=== PATIENT | female | born 1945 | race Caucasian/White ===

== ENCOUNTER 2017-08-09 17:22 | Inpatient (IN) | payer MEDICARE ==
[~2017-08-09] VITALS: Ht 160 cm; Wt 108.0 kg
[2017-08-09 17:36] LABS: BASOPHILS % (AUTO) 0.9 % (0.0-5.0); EOSINOPHILS % (AUTO) 2.5 % (0.0-8.0); HEMATOCRIT 28.9 % (36-48); LYMPHOCYTES % (AUTO) 13.7 % (21.0-51.0); MEAN CORPUSCULAR HGB CONC 33.1 g/dL (32.0-36.0); MEAN CORPUSCULAR VOLUME 90.9 fL (79-99); MONOCYTES % (AUTO) 12.2 % (3.0-13.0); NEUTROPHILS % (AUTO) 70.7 % (40.0-77.0); NUCLEATED RED BLOOD CELLS 0.1 % (0.0-0.19); PLATELET COUNT (AUTO) 247 K/uL (130-400); RED BLOOD CELL COUNT(AUTO) 3.18 MIL/uL (4.00-5.50); RED CELL DISTRIBUTION WIDTH 16.5 % (11.0-15.5); WHITE BLOOD COUNT (AUTO) 7.8 K/uL (4.8-10.8)
[2017-08-09 17:49] LABS: POTASSIUM 3.8 mmol/L (3.5-5.1)
[2017-08-09 17:55] LABS: ALBUMIN 3.1 g/dL (3.5-5.0); BILIRUBIN,TOTAL 0.5 mg/dL (0.2-1.0); TOTAL PROTEIN, SERUM 6.6 g/dL (6.0-8.3)
[2017-08-09 18:27] LABS: CREATINE KINASE MB 1.7 ng/mL (0.5-3.6)
[2017-08-09] MEDS ORDERED: IOPAMIDOL-370 100 ML VIAL IV ONE (20:11)
[2017-08-09 23:03] VITALS: BP 128/65
[2017-08-09] MEDS ORDERED: POTASSIUM CHLORIDE 20 MEQ ERTAB PO PRN (23:30)
[2017-08-09] MEDS ORDERED: POTASSIUM CHLORIDE 20MEQ/100ML 100 ML IV PRN (23:30)
[2017-08-09] MEDS ORDERED: POTASSIUM CHLORIDE 10% ELIXIR 20 MEQ/15 ML UDCUP PO PRN (23:30)
[2017-08-09] MEDS ORDERED: IPRATROPIUM/ALBUTEROL SULFATE 3 ML SOLUTION IH PRN (23:30)
[2017-08-09] MEDS ORDERED: LIDOCAINE HCL-MPF 1% 2ML VIAL IJ PRN (23:30)
[2017-08-10 00:02] LABS: CREATINE KINASE MB 1.5 ng/mL (0.5-3.6); CREATINE KINASE, TOTAL 37 U/L (21-232); MYOGLOBIN 167 ng/mL (10-92); TROPONIN I < 0.04 ng/mL (0.00-0.06)
[2017-08-10] MEDS ORDERED: DEXTROSE 50%-WATER 50 ML DISP.SYRIN IV PRN (00:30)
[2017-08-10] MEDS ORDERED: GLUCAGON 1MG KIT 1 MG ML IM PRN (00:30)
[2017-08-10] MEDS ORDERED: UBIQ100C3 PO (01:27)
[2017-08-10] MEDS ORDERED: AMLO5TAB4 PO (01:27)
[2017-08-10] MEDS ORDERED: MELA10TA2 PO (01:27)
[2017-08-10] MEDS ORDERED: METO-409 PO (01:27)
[2017-08-10] MEDS ORDERED: ERGO80004 PO (01:27)
[2017-08-10] MEDS ORDERED: PENT400T12 PO (01:27)
[2017-08-10] MEDS ORDERED: APIX2.5T PO (01:27)
[2017-08-10] MEDS ORDERED: FURO40TA7 PO (01:32)
[2017-08-10] MEDS ORDERED: INSU100I3 SQ (01:32)
[2017-08-10 03:16] VITALS: BP 139/60
[2017-08-10 05:33] LABS: BASOPHILS % (AUTO) 0.7 % (0.0-5.0); EOSINOPHILS % (AUTO) 2.9 % (0.0-8.0); HEMATOCRIT 25.1 % (36-48); LYMPHOCYTES % (AUTO) 17.6 % (21.0-51.0); MEAN CORPUSCULAR HEMOGLOBIN 30.9 pg (27.0-33.0); MEAN CORPUSCULAR HGB CONC 34.3 g/dL (32.0-36.0); MONOCYTES % (AUTO) 14.2 % (3.0-13.0); NEUTROPHILS % (AUTO) 64.6 % (40.0-77.0); NUCLEATED RED BLOOD CELLS 0.1 % (0.0-0.19); PLATELET COUNT (AUTO) 221 K/uL (130-400); RED BLOOD CELL COUNT(AUTO) 2.78 MIL/uL (4.00-5.50); RED CELL DISTRIBUTION WIDTH 16.4 % (11.0-15.5); WHITE BLOOD COUNT (AUTO) 5.9 K/uL (4.8-10.8)
[2017-08-10 05:59] LABS: CARBON DIOXIDE 28 mmol/L (21-32); CHLORIDE 97 mmol/L (101-111); CREATINE KINASE MB 1.5 ng/mL (0.5-3.6); CREATINE KINASE, TOTAL 38 U/L (21-232); CREATININE 4.4 mg/dL (0.5-1.5); GLOMERULAR FILTR. RATE CALC 10 mL/min (>60); GLUCOSE,RANDOM 158 mg/dL (70-105); MYOGLOBIN 174 ng/mL (10-92); SODIUM SERUM 134 mmol/L (136-145); TROPONIN I < 0.04 ng/mL (0.00-0.06); UREA NITROGEN, BLOOD 44 mg/dL (7-18)
[2017-08-10] MEDS: INSULIN HUMULIN R 100 UNIT/ML 3ML SQ SCH ×4 (06:32→20:47)
[2017-08-10 07:47] VITALS: BP 144/73
[2017-08-10] MEDS: PENTOXIFYLLINE 400 MG TABLET.SA PO SCH ×2 (09:00→20:27)
[2017-08-10] MEDS: ***HM***Metoprolol Succinate 100 MG PO SCH ×2 (09:00→20:31)
[2017-08-10] MEDS ORDERED: EPOETIN ALFA 10,000 UNIT/ML VIAL SQ SCH (09:00)
[2017-08-10] MEDS: UBIQUINOL 100 MG PO SCH (09:00)
[2017-08-10] MEDS: VITAMIN D2 PO SCH (09:00)
[2017-08-10] MEDS ORDERED: FUROSEMIDE 80 MG TABLET PO SCH (09:00)
[2017-08-10] MEDS: FAMOTIDINE 20MG TAB 20 MG TAB PO SCH ×2 (09:00→20:27)
[2017-08-10] MEDS ORDERED: APIXABAN 2.5 MG TABLET PO SCH ×2 (09:00→21:00)
[2017-08-10] MEDS ORDERED: AMLODIPINE BESYLATE 5 MG TAB PO SCH (09:00)
[2017-08-10] MEDS ORDERED: HEPARIN SODIUM 5000UNIT/ML 1ML VIAL IJ PRN (10:15)
[2017-08-10] MEDS ORDERED: SODIUM CHLORIDE 0.9% 1000ML 1,000 ML IV PRN (10:15)
[2017-08-10] MEDS ORDERED: 0.9% SODIUM CHLORIDE 250 ML IV BAG IV PRN (10:15)
[2017-08-10 11:00] VITALS: BP 101/87
[2017-08-10] MEDS: WARFARIN SODIUM 5 MG TAB PO SCH ×2 (16:00→16:04)
[2017-08-10] MEDS: LISINOPRIL 10 MG TABLET PO SCH (16:03)
[2017-08-10 16:18] VITALS: BP 159/73
[2017-08-10 19:36] VITALS: BP 141/69
[2017-08-10] MEDS: ***HM***Melatonin 10 MG PO SCH (20:30)
[2017-08-10] MEDS: INSULIN GLARGINE 100 UNITS/ML 10 ML VIAL SQ SCH (20:47)
[2017-08-10] MEDS ORDERED: APIXABAN 5 MG TABLET PO SCH (21:00)
[2017-08-10] MEDS ORDERED: ALPRAZOLAM 0.25 MG TABLET PO ONE (21:00)
[2017-08-10 23:24] VITALS: BP 142/67
[2017-08-11 03:37] VITALS: BP 133/67
[2017-08-11 04:59] LABS: HEMATOCRIT 27.7 % (36-48); MEAN CORPUSCULAR HEMOGLOBIN 30.4 pg (27.0-33.0); MEAN CORPUSCULAR HGB CONC 33.1 g/dL (32.0-36.0); MEAN CORPUSCULAR VOLUME 91.7 fL (79-99); PLATELET COUNT (AUTO) 223 K/uL (130-400); RED BLOOD CELL COUNT(AUTO) 3.03 MIL/uL (4.00-5.50); RED CELL DISTRIBUTION WIDTH 16.2 % (11.0-15.5); WHITE BLOOD COUNT (AUTO) 6.6 K/uL (4.8-10.8)
[2017-08-11 05:10] LABS: INR 0.97 (0.85-1.15); PARTIAL THROMBOPLASTIN TIME 26.9 SEC (26.3-35.5); PROTHROMBIN TIME 10.2 SEC (9.6-11.6)
[2017-08-11 05:16] LABS: ALBUMIN 2.8 g/dL (3.5-5.0); BILIRUBIN,TOTAL 0.5 mg/dL (0.2-1.0); CREATININE 4.6 mg/dL (0.5-1.5); POTASSIUM 3.8 mmol/L (3.5-5.1)
[2017-08-11] MEDS: INSULIN HUMULIN R 100 UNIT/ML 3ML SQ SCH ×4 (05:38→21:09)
[2017-08-11 07:39] VITALS: BP 130/64
[2017-08-11] MEDS: ***HM***Metoprolol Succinate 100 MG PO SCH ×2 (09:00→21:00)
[2017-08-11] MEDS: UBIQUINOL 100 MG PO SCH (09:00)
[2017-08-11] MEDS: VITAMIN D2 PO SCH (09:00)
[2017-08-11 11:19] VITALS: BP 135/67
[2017-08-11] MEDS: FAMOTIDINE 20MG TAB 20 MG TAB PO SCH ×2 (14:23→21:10)
[2017-08-11] MEDS: APIXABAN 2.5 MG TABLET PO SCH ×2 (14:23→21:10)
[2017-08-11] MEDS: PENTOXIFYLLINE 400 MG TABLET.SA PO SCH ×2 (14:23→21:10)
[2017-08-11] MEDS: LISINOPRIL 10 MG TABLET PO SCH (14:26)
[2017-08-11 16:05] VITALS: BP 143/62
[2017-08-11 19:38] VITALS: BP 121/44
[2017-08-11] MEDS: INSULIN GLARGINE 100 UNITS/ML 10 ML VIAL SQ SCH (21:00)
[2017-08-11] MEDS: ***HM***Melatonin 10 MG PO SCH (21:00)
[2017-08-11 23:46] VITALS: BP 120/66
[2017-08-12 03:51] VITALS: BP 129/61
[2017-08-12 04:25] LABS: HEMATOCRIT 25.1 % (36-48); MEAN CORPUSCULAR HEMOGLOBIN 32.5 pg (27.0-33.0); MEAN CORPUSCULAR HGB CONC 35.6 g/dL (32.0-36.0); MEAN CORPUSCULAR VOLUME 91.2 fL (79-99); PLATELET COUNT (AUTO) 193 K/uL (130-400); RED BLOOD CELL COUNT(AUTO) 2.75 MIL/uL (4.00-5.50); RED CELL DISTRIBUTION WIDTH 16.2 % (11.0-15.5); WHITE BLOOD COUNT (AUTO) 5.8 K/uL (4.8-10.8)
[2017-08-12 04:32] LABS: CREATININE 4.6 mg/dL (0.5-1.5); MAGNESIUM 2.2 mg/dL (1.80-2.40); POTASSIUM 3.7 mmol/L (3.5-5.1)
[2017-08-12] MEDS: INSULIN HUMULIN R 100 UNIT/ML 3ML SQ SCH ×4 (06:10→21:00)
[2017-08-12 07:30] VITALS: BP 122/49
[2017-08-12] MEDS: PENTOXIFYLLINE 400 MG TABLET.SA PO SCH ×2 (08:54→21:23)
[2017-08-12] MEDS: APIXABAN 2.5 MG TABLET PO SCH ×2 (08:54→21:24)
[2017-08-12] MEDS: LISINOPRIL 10 MG TABLET PO SCH (08:54)
[2017-08-12] MEDS: FAMOTIDINE 20MG TAB 20 MG TAB PO SCH ×2 (08:54→21:23)
[2017-08-12] MEDS: ***HM***Metoprolol Succinate 100 MG PO SCH (08:55)
[2017-08-12] MEDS: VITAMIN D2 PO SCH (08:55)
[2017-08-12] MEDS: UBIQUINOL 100 MG PO SCH (08:55)
[2017-08-12 11:30] VITALS: BP 155/74
[2017-08-12] MEDS ORDERED: REGADENOSON 0.4 MG/5 ML PF SYG IVP SCH (13:00)
[2017-08-12] MEDS ORDERED: CLONIDINE HCL 0.1 MG TABLET ONE (17:15)
[2017-08-12 17:18] VITALS: BP 154/90
[2017-08-12] MEDS ORDERED: CLONIDINE HCL 0.1 MG TABLET PO PRN (17:30)
[2017-08-12 18:29] VITALS: BP 137/70
[2017-08-12 19:56] VITALS: BP 132/62
[2017-08-12] MEDS: **HM** TOPROL XL 100MG PO SCH (21:00)
[2017-08-12] MEDS: ***HM***Melatonin 10 MG PO SCH (21:00)
[2017-08-12] MEDS: INSULIN GLARGINE 100 UNITS/ML 10 ML VIAL SQ SCH (21:27)
[2017-08-13 00:30] VITALS: BP 122/60
[2017-08-13 05:04] VITALS: BP 122/60
[2017-08-13] MEDS: INSULIN HUMULIN R 100 UNIT/ML 3ML SQ SCH ×3 (06:46→16:41)
[2017-08-13 07:28] VITALS: BP 129/64
[2017-08-13] MEDS: PENTOXIFYLLINE 400 MG TABLET.SA PO SCH (07:59)
[2017-08-13] MEDS: FAMOTIDINE 20MG TAB 20 MG TAB PO SCH (07:59)
[2017-08-13] MEDS: LISINOPRIL 10 MG TABLET PO SCH (07:59)
[2017-08-13] MEDS: VITAMIN D2 PO SCH (08:05)
[2017-08-13] MEDS: **HM** TOPROL XL 100MG PO SCH (08:05)
[2017-08-13] MEDS: UBIQUINOL 100 MG PO SCH (08:05)
[2017-08-13] MEDS: APIXABAN 2.5 MG TABLET PO SCH (09:07)
[2017-08-13] MEDS ORDERED: ALBUMIN (HUMAN) 25% 100 ML IV PRN (11:00)
[2017-08-13 11:15] VITALS: BP 168/88
[2017-08-13] MEDS ORDERED: INSLAN SQ (12:46)
[2017-08-13] MEDS ORDERED: LISI10TA7 PO (12:46)
[2017-08-13 15:58] VITALS: BP 134/62
[2017-08-13 20:04] VITALS: BP 147/75
[2017-08-13] MEDS: ***HM***Melatonin 10 MG PO SCH (20:05)
== END 2017-08-13 21:33 | disposition home or self-care (01) | DRG 291 ==
LOC: EDH 17:22 → OBSVTOIN 21:39 → EDHIP 21:39 → 2DH 22:49
PROVIDERS: ADMIT Family Medicine; ATTEND Family Medicine
PROC: 5A1D70Z Performance of Urinary Filtration, Intermittent, Less than 6 Hours Per Day (ICD-10-PCS; principal; 2017-08-10)
PROC: 5A1D70Z Performance of Urinary Filtration, Intermittent, Less than 6 Hours Per Day (ICD-10-PCS; 2017-08-11)
PROC: 5A1D70Z Performance of Urinary Filtration, Intermittent, Less than 6 Hours Per Day (ICD-10-PCS; 2017-08-13)
DX: I13.2 Hypertensive heart and chronic kidney disease with heart failure and with stage 5 chronic kidney disease, or end stage renal disease (principal); J96.01 Acute respiratory failure with hypoxia; N18.6 End stage renal disease; I50.33 Acute on chronic diastolic (congestive) heart failure; Z68.41 Body mass index [BMI] 40.0-44.9, adult; D63.8 Anemia in other chronic diseases classified elsewhere; E11.21 Type 2 diabetes mellitus with diabetic nephropathy; E11.22 Type 2 diabetes mellitus with diabetic chronic kidney disease; E66.01 Morbid (severe) obesity due to excess calories; E78.00 Pure hypercholesterolemia, unspecified; E78.5 Hyperlipidemia, unspecified; G47.30 Sleep apnea, unspecified; I45.10 Unspecified right bundle-branch block; I48.2 Chronic atrial fibrillation; R79.1 Abnormal coagulation profile; Z79.01 Long term (current) use of anticoagulants; Z99.2 Dependence on renal dialysis; Z83.3 Family history of diabetes mellitus; Z82.5 Family history of asthma and other chronic lower respiratory diseases; Z82.49 Family history of ischemic heart disease and other diseases of the circulatory system; Z60.2 Problems related to living alone; Z88.0 Allergy status to penicillin
CPT/HCPCS: 36415; 71045; 71275; 78452; 80048; 80053; 82550; 82553; 82948; 83735; 83874; 83880; 84484; 85025; 85027; 85378; 85610; 85730; 90935; 93005; 93017; 93306; 94660; 94664; 94761; 96374; A9500; J0885; J1644; J1815; J2785; J7030; Q9967

== ENCOUNTER 2017-09-16 13:53 | Emergency (ER) | payer MEDICARE ==
[~2017-09-16 13:53] MED LIST: APIX2.5T PO; ERGO80004 PO; INSLAN SQ; INSU100I3 SQ; LISI10TA7 PO; MELA10TA2 PO; METO-409 PO; PENT400T12 PO; UBIQ100C3 PO
[2017-09-16] MEDS ORDERED: ACETAMINOPHEN EXTRA STRENGTH 500 MG TABLET ONE ×2 (14:56→14:58)
[2017-09-16] MEDS ORDERED: CYCLOBENZAPRINE HCL 10 MG TABLET ONE ×2 (14:57→14:58)
== END 2017-09-16 17:21 | disposition home or self-care (01) ==
LOC: EDH 13:53
DX: M62.838 Other muscle spasm (principal); I12.0 Hypertensive chronic kidney disease with stage 5 chronic kidney disease or end stage renal disease; E11.22 Type 2 diabetes mellitus with diabetic chronic kidney disease; N18.6 End stage renal disease; I25.10 Atherosclerotic heart disease of native coronary artery without angina pectoris; M19.90 Unspecified osteoarthritis, unspecified site; Z88.0 Allergy status to penicillin; Z99.2 Dependence on renal dialysis
CPT/HCPCS: 93005

== ENCOUNTER 2019-06-03 05:30 | Day surgery (SDC) | payer MEDICARE, OTHER ==
[~2019-06-03] VITALS: Ht 160 cm; Wt 106.6 kg
[~2019-06-03 05:30] MED LIST changes: +ERGO800010 PO; -ERGO80004 PO; -PENT400T12 PO; +PENT400T72 PO
--- NOTE | 2019-06-21 12:00 | NUR ---
NOTIFIED ELIEZER LANG EDUCATION ASSISTANT OF ISOLATION PRECAUTION C-DIFF
--- NOTE | 2019-06-21 12:10 | NUR ---
NOTIFIED HANK LANG INFECTION CONTROL ON C-DIFF PRECAUTION AND OPEN WOUND TO RIGHT FOOT, PLACE PATIENT IN CONTACT ISOLATION
--- NOTE | 2019-06-21 12:30 | NUR ---
HT AND WT STATED BY PATIENT, SHE GETS WEIGHTED AT DIALYSIS Addendum: 06/21/19 at 1231 by BRENT LUONG RN RN Amended: Links added.
[2019-06-21 12:32] VITALS: BP 85/65
[2019-06-21 12:39] LABS: BASOPHILS % (AUTO) 0.7 % (0.0-5.0); EOSINOPHILS % (AUTO) 0.3 % (0.0-8.0); HEMATOCRIT 33.2 % (36-48); LYMPHOCYTES % (AUTO) 18.3 % (21.0-51.0); MEAN CORPUSCULAR HEMOGLOBIN 24.5 pg (27.0-33.0); MEAN CORPUSCULAR VOLUME 87.4 fL (79-99); MONOCYTES % (AUTO) 7.9 % (3.0-13.0); NEUTROPHILS % (AUTO) 69.2 % (40.0-77.0); PLATELET COUNT (AUTO) 123 K/uL (130-400); RED CELL DISTRIBUTION WIDTH 18.5 % (11.0-15.5); WHITE BLOOD COUNT (AUTO) 9.1 K/uL (4.8-10.8)
[2019-06-21 12:50] LABS: POTASSIUM 4.3 mmol/L (3.5-5.1)
[2019-06-21 13:15] LABS: INR 1.21 (0.85-1.15); PROTHROMBIN TIME 12.6 SEC (9.6-11.6)
--- NOTE | 2019-06-21 13:26 | NUR ---
RIGHT FOOT WOUND PER CAMILA BRANHAM NURSE AT [facility], CULT TO RIGHT FOOT WOUND ABUNDANT MIXED MICROBIAL SE WOUND CULT FROM 05/21/2019
--- NOTE | 2019-06-21 13:26 | NUR ---
PREOP REPORT PREOP INSTRUCTION GIVEN TO CAMILA BRANHAM NURSE AT [facility], [place] [phone], YELLOW COPY SENT WITH EMS TO GIVE TO CAMILA BRANHAM. PREOP INSTRUCTIONS PROVIDED TO PATIENT, SHE IS ALERT AND ORIENTED X4.
[2019-06-21 13:30] LABS: PARTIAL THROMBOPLASTIN TIME 33.1 SEC (26.3-35.5)
--- NOTE | 2019-06-21 14:54 | NUR ---
notified daughter Chloé of procedure date 06/23/2019 and we will call with time of arrival tomorrow, she verbalized understanding, also notified Lexie evening Nurse at [facility] of procedure date 06/23/2019 and we will call tomorrow with time of arrival, she verbalized understanding
[2019-06-21] MEDS ORDERED: MELA1TAB28 PO (15:38)
[2019-06-21] MEDS ORDERED: FLUT16H NASAL (15:38)
[2019-06-21] MEDS ORDERED: AEC81 PO (15:38)
[2019-06-21] MEDS ORDERED: GUAI100S13 PO (15:38)
[2019-06-21] MEDS ORDERED: VANC125C6 PO (15:38)
[2019-06-21] MEDS ORDERED: LEVO500T2 PO (15:38)
[2019-06-21] MEDS ORDERED: TRAM50TA4 PO (15:38)
[2019-06-21] MEDS ORDERED: METO25TA6 PO (15:38)
[2019-06-21] MEDS ORDERED: BENZ200C53 PO (15:38)
[2019-06-21] MEDS ORDERED: FLUC200T8 PO (15:38)
[2019-06-21] MEDS ORDERED: SEVE800T27 PO (15:38)
[2019-06-21] MEDS ORDERED: DOCU100C33 PO (15:38)
[2019-06-21] MEDS ORDERED: FAMO20TA8 PO (15:38)
[2019-06-21] MEDS ORDERED: FERR325T22 PO (15:38)
[2019-06-21] MEDS ORDERED: ACET325T51 PO (15:38)
[2019-06-21] MEDS ORDERED: INSU100I15 SQ (15:38)
[2019-06-21] MEDS ORDERED: INSU100I21 SQ (15:38)
[2019-06-21] MEDS ORDERED: QUESL4 PO (15:38)
[2019-06-21] MEDS ORDERED: ALBU0.63 IH (15:38)
[2019-06-21] MEDS ORDERED: TRAZ-185 PO (15:38)
[2019-06-21] MEDS ORDERED: ESCI10TA54 PO (15:38)
[2019-06-21] MEDS ORDERED: LACT10SO62 PO (15:38)
[2019-06-21] MEDS ORDERED: LACTOBACILLUS PO (15:38)
[2019-06-21] MEDS ORDERED: ALPR0.255 PO (15:38)
[2019-06-21] MEDS ORDERED: LANT500T3 PO (15:39)
--- NOTE | 2019-06-22 12:11 | NUR ---
WALKED OVER TO BILLIARD PLAYER TO SHOW ABNORMAL LABS TO NO NEW ORDER PER AT THIS TIME. OK TO PROCEED WITH PROCEDURE. Addendum: 06/22/19 at 1218 by BLAS DEL CASTILLO RN RN ALSO ABNORMAL X RAY WAS SEEN BY DR. VALDIVIA,NO NEW ORDERS AT THIS TIME.
--- NOTE | 2019-06-22 15:47 | NUR ---
SPOKE TO CAMILA MITCHELL LVN, AND IS AWARE OF TIME FOR PT ARRIVAL 6:00AM
[2019-06-23] MEDS ORDERED: SODIUM CHLORIDE 0.9% 500ML 500 ML IV SCH (05:00)
[2019-06-23 06:39] VITALS: BP 112/57
--- NOTE | 2019-06-23 08:03 | NUR ---
MED REC CALLED [facility] TO OBTAIN INFORMATION ON MED RECONCILIATION, SPOKE TO MARLENE MDS NURSE. PER MARLENE, PT WAS NOT GIVEN ANY MEDICATION AT ALL THIS AM, LAST DOSE ELIQUIS 06/20/19 AT 0800, SHE IS UNABLE TO GIVE ME EXACT DATES AND TIMES OF LAST MED DOSE. PER MARLENE, SHE WILL HAVE JANNET FRANK FAX EMAR TO US, FAX NUMBER PROVIDED [phone]
--- NOTE | 2019-06-23 08:27 | NUR ---
LEFT FOOT DRESSING DRY AND INTACT, LEFT HEEL BOOT IN PLACE Addendum: 06/23/19 at 0840 by JARETH EWING RN RN Amended: Links added.
--- NOTE | 2019-06-23 08:34 | NUR ---
PT HAD A BM UPON ARRIVAL, SOFT, SMALL AMOUNT. PT STATES SHE HAS BEEN HAVING STOMACH PROBLEMS, DIARRHEA- CDIFF. PLACED PT ON CONTACT PLUS ISOLATION Addendum: 06/23/19 at 0840 by JARETH EWING RN RN Amended: Links added.
[2019-06-23] MEDS ORDERED: SODIUM CHLORIDE 0.9% 1000ML 1,000 ML IV ONE (08:49)
--- NOTE | 2019-06-23 08:50 | NUR ---
RE IODINE ALLERGY MARKED ON PENITENTIARY EMAR PT DENIES IODINE ALLERGY. SD PER PT, SHE HAS HAD IODINE CONTRAST FOR PROCEDURES IN THE PAST.
--- NOTE | 2019-06-23 09:09 | NUR ---
MED TYESHA RECEIVED FAXED EMAR FROM [facility], UNABLE TO VERIFY DATES/TIMES. CALLED [facility] SEVERAL TIMES, UNABLE TO GET A HOLD OF CAMILA BRANHAM PT'S NURSE. PER ELIEZER, SHE WILL LET CAMILA BRANHAM KNOW AND HAVE HER CALL US BACK.
[2019-06-23] MEDS ORDERED: IODIXANOL 320 MG/ML 100 ML VIAL ONE (09:48)
[2019-06-23] MEDS ORDERED: SODIUM BICARB 50MEQ 50ML VIAL ONE (09:48)
[2019-06-23] MEDS ORDERED: NITROGLYCERIN 2 MG/VIAL VIAL IV ONE (09:48)
[2019-06-23] MEDS ORDERED: HEPARIN SODIUM 1000UNIT/ML 10ML VIAL ONE (09:48)
[2019-06-23] MEDS ORDERED: FENTANYL CITRATE PF 50 MCG/1 ML 2ML VIAL ONE (09:49)
[2019-06-23] MEDS ORDERED: MIDAZOLAM HCL 1 MG/ML 2ML VIAL ONE (09:49)
[2019-06-23] MEDS ORDERED: LIDOCAINE HCL 2% 20ML ONE (09:49)
--- NOTE | 2019-06-23 09:57 | NUR ---
MED REC SPOKE TO CAMILA JJ LVN FOR MED REC, REPORTED LAST DOSE DATES/TIMES.
--- NOTE | 2019-06-23 11:10 | NUR ---
PROCEDURE CANCELLED PROCEDURE CANCELLED. PT BACK TO ROOM FROM SAS DEVELOPER ANALYST, AWAKE ALERT ORIENTED X3, STABLE. MAINTAINED ON NPO. DR. VALDIVIA WAS IN ROOM AND SPOKE TO PT'S SISTER, ORDERS FOR CT ANGIO TODAY IF POSSIBLE, MAY DISCHARGE BACK TO INTERMEDIATE AFTER CT DONE. IF CT NOT DONE TODAY DR. VALDIVIA WANTS IT DONE OUTPATIENT, WANTS TO SEE PT BACK IN OFFICE WITH RESULTS.
[2019-06-23 11:22] VITALS: BP 138/88
--- NOTE | 2019-06-23 11:25 | NUR ---
CT CALLED RADIOLOGY, SPOKE TO MIGUEL A. PER MIGUEL A, THEY CAN DO CT ANGIO TODAY LONG PT HAS A GOOD IV EITHER 18 OR 20 GAUGE TO ANTECUBITAL AREA.
[2019-06-23] MEDS ORDERED: IOHEXOL-350 50ML VIAL IV ONE (12:39)
[2019-06-23] MEDS ORDERED: IOHEXOL-350 75 ML VIAL IV ONE (12:39)
--- NOTE | 2019-06-23 12:45 | NUR ---
TO RADIOLOGY PT TAKEN TO RAD FOR CT VIA BED. PT STABLE. KEPT NPO.
[2019-06-23 13:20] VITALS: BP 137/86
--- NOTE | 2019-06-23 13:25 | NUR ---
PT BACK FROM CT, TOLERATED PROCEDURE WELL.
[2019-06-23 13:35] VITALS: BP 131/84
[2019-06-23 14:00] VITALS: BP 102/56
--- NOTE | 2019-06-23 14:00 | NUR ---
REPORT AND DISCHARGE INSTRUCTIONS GIVEN TO CAMILA BRANHAM LVN FROM [facility]. ALSO GAVE INSTRUCTIONS TO PT AND SISTER. PT UNDERSTANDS THE NEED TO GO TO HER DIALYSIS WHICH IS SCHEDULED TOMORROW ESPECIALLY DUE IV CONTRAST GIVEN, STATES SHE NEVER MISSES HER DIALYSIS.
[2019-06-23 14:20] VITALS: BP 106/63
--- NOTE | 2019-06-23 15:10 | NUR ---
DISCHARGE EMS HERE. PT DISCHARGED VIA STRETCHER VIA AMBULANCE. PT STABLE. NO COMPLAINTS MADE. TOLERATED RENAL DIET WELL. DISCHARGE PAPERS SENT WITH EMS.
== END 2019-06-23 15:10 ==
LOC: DAH 05:30
PROVIDERS: ATTEND Internal Medicine Cardiovascular Disease
DX: I73.9 Peripheral vascular disease, unspecified (principal); Z53.8 Procedure and treatment not carried out for other reasons; J90 Pleural effusion, not elsewhere classified; I25.2 Old myocardial infarction; E11.22 Type 2 diabetes mellitus with diabetic chronic kidney disease; I13.2 Hypertensive heart and chronic kidney disease with heart failure and with stage 5 chronic kidney disease, or end stage renal disease; N18.6 End stage renal disease; I50.32 Chronic diastolic (congestive) heart failure; Z99.2 Dependence on renal dialysis; Z79.4 Long term (current) use of insulin; Z83.3 Family history of diabetes mellitus
CPT/HCPCS: 36415; 71045; 75635; 80048; 82948 ×4; 85025; 85610; 85730; 93005; A4215; A4216; A4221; A4222; A4223 ×3; A4606; A4663; C1894 ×2; J1644; J3490 ×3; J7030; Q9967 ×3; J2250; J3010